=== PATIENT | female | born 1935 | race Caucasian/White ===

== ENCOUNTER 2021-12-02 10:26 | Emergency (ER) | payer MEDICARE, OTHER ==
[~2021-12-02 10:26] MED LIST: ACETAMINOPHEN325 MG PO; ASPIR 8181 MG PO; CARBIDOPA-LEVO1 EAC3 PO; CERTAGEN1 EACH PO; CLARITIN10 M2 PO; COLACE100 MG PO; COREG 6.25MG6.25 MG PO; COZAAR 25MG TAB25 MG PO; FEOSOL325 MG PO; ISOSORBIDE DINI10 MG PO; LACTINEX1 EACH PO; LIPITOR20 MG PO; LOSARTAN POTASS25 MG PO; MAG-OXIDE 400M400 MG PO; MYSOLINE50 M1 PO; MYSOLINE50 MG PO; NITROQUIK SL0.4 MG SL; OXYCODONE-ACET1 EAC1 PO; PANTOPRAZOLE SO40 MG PO; VITAMIN B-121000 MC1 IJ; VITAMIN B-121000 MC1 PO; VITAMIN D1000 UNIT PO; XARELTO10 MG PO; ZOCOR40 MG PO
[2021-12-02 12:05] LABS: BASOPHIL 1.1 % (0-2); EOSINOPHIL 1.7 % (0-7); HCT 37.3 % (37.0-47.0); HGB 12.2 g/dl (12.5-16.0); LYMPHOCYTE 16.8 % (15-48); MCH 32.1 pg (25.0-31.0); MCHC 32.7 g/dL (32.0-36.0); MCV 98.2 fL (78.0-100.0); MONOCYTE 9.6 % (0-12); MPV 9.1 fL (6.0-9.5); NEUTROPHIL 69.7 % (41-80); NRBC 0; PLT 193 K/uL (150-400); RDW 12.5 % (11.5-14.0); WBC 6.4 K/uL (4.0-10.5)
[2021-12-02 12:24] LABS: BILIRUBIN NEGATIVE (NEGATIVE); BLOOD NEGATIVE Ery/uL (NEGATIVE); CLARITY CLEAR (CLEAR); COLOR YELLOW (YELLOW); GLUCOSE (U) NORMAL (NORMAL); LEUKOCYTES NEGATIVE Leu/uL (NEGATIVE); NITRITE NEGATIVE (NEGATIVE); PROTEIN NEGATIVE (NEGATIVE); UROBILINOGEN 0.2 mg/dL (0.2-1.0)
[2021-12-02 12:34] LABS: BUN/CREAT RATIO (CALC) 30.7 RATIO; CREATININE 1.14 mg/dL (0.51-0.95); POTASSIUM 4.5 mmol/L (3.5-5.1)
== END 2021-12-02 13:27 | disposition home or self-care (01) ==
LOC: FER 10:26
PROVIDERS: Emergency Medicine
DX: R33.9 Retention of urine, unspecified (principal); I10 Essential (primary) hypertension; Z71.1 Person with feared health complaint in whom no diagnosis is made
CPT/HCPCS: 36415; 80048; 81003; 85025; 99283